=== PATIENT | male | born 1990 | race Caucasian/White ===

== ENCOUNTER → 2019-08-04 | Outpatient (REF) | payer OTHER ==
[2019-08-04 13:16] LABS: INFLUENZA A AMPLIFICATION NEGATIVE (NEGATIVE); INFLUENZA B AMPLIFICATION POSITIVE (NEGATIVE)
== END ==
LOC: M LAB REF 12:26
PROVIDERS: ATTEND Physician Assistant Medical
DX: J11.1 Influenza due to unidentified influenza virus with other respiratory manifestations (principal)

== ENCOUNTER → 2021-06-02 | Outpatient (REF) | payer OTHER | LOC: M LAB REF 09:43 | PROVIDERS: ATTEND Physician Assistant | DX: J00 Acute nasopharyngitis [common cold] (principal) ==

== ENCOUNTER → 2022-11-13 | Outpatient (CLI) | payer OTHER | LOC: M SOG 10:57 | PROVIDERS: ATTEND Physician Assistant | DX: M79.641 Pain in right hand (principal); M79.642 Pain in left hand ==

== ENCOUNTER → 2024-01-18 | Outpatient (REF) | payer OTHER | LOC: M SMT 13:10 | PROVIDERS: ATTEND Urology | DX: Z30.2 Encounter for sterilization (principal) ==

== ENCOUNTER → 2024-04-23 | Outpatient (REF) | payer OTHER ==
[2024-04-23 10:18] LABS: SEMEN APPEARANCE OPAQUE (OPAQUE); SEMEN VISCOSITY LIQUID (LIQUID); SEMEN pH 8.5 (7.0-8.0); WBC CONCENTRATION >1 M/ml (<=1 M/ml)
== END ==
LOC: M SMT 10:01
PROVIDERS: ATTEND Urology
DX: Z30.8 Encounter for other contraceptive management (principal)